=== PATIENT | female | born 1980 | race Caucasian/White ===

== ENCOUNTER 2017-01-26 23:07 | Emergency (ER) | payer BC ==
[2017-01-27 03:07] LABS: CALCIUM 8.2 mg/dL (8.5-10.1); CARBON DIOXIDE 26.7 mmol/L (21-32); CHLORIDE SERUM 103 mmol/L (98-107); CREATININE SERUM 0.7 mg/dL (0.6-1.0); GFR1 > 60 mL/min; GLUCOSE SERUM 108 mg/dL (74-106); POTASSIUM SERUM 3.4 mmol/L (3.5-5.1); SODIUM SERUM 138 mmol/L (136-145)
[2017-01-27 03:11] LABS: ALKALINE PHOSPHATASE 106 U/L (46-116); ALT/SGPT 21 U/L (14-59); AST/SGOT 14 U/L (15-37); LIPASE 106 IU/L (73-393)
[2017-01-27 03:15] LABS: ALBUMIN 3.3 g/dL (3.4-5.0)
[2017-01-27 04:06] VITALS: BP 114/88
== END 2017-01-27 04:06 | disposition home or self-care (01) ==
LOC: ED 23:07
PROVIDERS: Emergency Medicine
DX: R19.7 Diarrhea, unspecified (principal); R10.13 Epigastric pain; R11.2 Nausea with vomiting, unspecified
CPT/HCPCS: J0500; J2405; J7030

== ENCOUNTER 2017-03-30 22:32 | Emergency (ER) | payer BC ==
[2017-03-30 22:53] VITALS: BP 141/90
== END 2017-03-31 01:10 | disposition home or self-care (01) ==
LOC: ED 22:32
DX: S86.912A Strain of unspecified muscle(s) and tendon(s) at lower leg level, left leg, initial encounter (principal); S93.402A Sprain of unspecified ligament of left ankle, initial encounter; W19.XXXA Unspecified fall, initial encounter; Z79.891 Long term (current) use of opiate analgesic; Y93.89 Activity, other specified; Y92.89 Other specified places as the place of occurrence of the external cause; Y99.8 Other external cause status
CPT/HCPCS: 36415; 90715; J1885

== ENCOUNTER 2018-06-02 11:44 | Emergency (ER) | payer MEDICAID ==
[~2018-06-02] VITALS: Ht 152.4 cm; Wt 97.6 kg
[2018-06-02 11:49] VITALS: Ht 152.4 cm; Wt 97.6 kg
[2018-06-02 14:17] VITALS: BP 135/89
== END 2018-06-02 14:17 | disposition home or self-care (01) ==
LOC: ED 11:44
DX: B34.9 Viral infection, unspecified (principal); I10 Essential (primary) hypertension; Z98.890 Other specified postprocedural states
CPT/HCPCS: J1885

== ENCOUNTER 2018-12-26 21:26 | Emergency (ER) | payer MEDICAID ==
[~2018-12-26] VITALS: Ht 152.4 cm; Wt 96.6 kg
[2018-12-26 21:51] VITALS: Ht 152.4 cm; Wt 96.6 kg
[2018-12-26 22:57] VITALS: BP 135/80
== END 2018-12-26 22:57 | disposition home or self-care (01) ==
LOC: ED 21:26
DX: J40 Bronchitis, not specified as acute or chronic (principal); I10 Essential (primary) hypertension; Z86.2 Personal history of diseases of the blood and blood-forming organs and certain disorders involving the immune mechanism; Z98.890 Other specified postprocedural states

== ENCOUNTER 2019-02-13 22:28 | Emergency (ER) | payer MEDICAID ==
[~2019-02-13] VITALS: Ht 152.4 cm; Wt 98.9 kg
[2019-02-13 22:47] VITALS: Ht 152.4 cm; Wt 98.9 kg
[2019-02-14 01:41] VITALS: BP 133/93
== END 2019-02-14 01:41 | disposition home or self-care (01) ==
LOC: ED 22:28
DX: R25.2 Cramp and spasm (principal); I10 Essential (primary) hypertension; Z98.890 Other specified postprocedural states
CPT/HCPCS: J1885; Q0092

== ENCOUNTER 2019-06-04 14:54 | Emergency (ER) | payer MEDICAID ==
[~2019-06-04] VITALS: Ht 160 cm; Wt 91.6 kg
[2019-06-04 15:04] VITALS: Ht 160 cm; Wt 91.6 kg
[2019-06-04 17:38] LABS: BASOPHIL % 1.4 % (0-2)
[2019-06-04 17:41] LABS: PLATELET COUNT 413 x10^3mcL (130-400); RED CELL DISTRIBUTION WIDTH 18.3 % (11.5-14.5)
[2019-06-04 17:43] LABS: CALCIUM 8.5 mg/dL (8.5-10.1); CARBON DIOXIDE 26.6 mmol/L (21-32); CHLORIDE SERUM 107 mmol/L (98-107); CREATININE SERUM 0.8 mg/dL (0.6-1.0); GFR1 > 60 mL/min; GLUCOSE SERUM 92 mg/dL (74-106); POTASSIUM SERUM 3.3 mmol/L (3.5-5.1); SODIUM SERUM 143 mmol/L (136-145)
[2019-06-04 17:47] LABS: ALBUMIN 3.4 g/dL (3.4-5.0); ALKALINE PHOSPHATASE 131 U/L (46-116); ALT/SGPT 23 U/L (14-59); AST/SGOT 16 U/L (15-37); BILIRUBIN TOTAL 0.48 mg/dL (0.20-1.00); TOTAL PROTEIN, SERUM 7.6 g/dL (6.4-8.2)
[2019-06-04 20:12] VITALS: BP 138/89
== END 2019-06-04 20:12 | disposition home or self-care (01) ==
LOC: ED 14:54
PROVIDERS: Emergency Medicine
DX: E87.6 Hypokalemia (principal); I10 Essential (primary) hypertension; Z86.2 Personal history of diseases of the blood and blood-forming organs and certain disorders involving the immune mechanism
CPT/HCPCS: 36415

== ENCOUNTER 2019-06-22 22:04 | Emergency (ER) | payer MEDICAID ==
[~2019-06-22] VITALS: Ht 154.9 cm; Wt 97.5 kg
[2019-06-22 22:40] VITALS: Ht 154.9 cm; Wt 97.5 kg
[2019-06-22 23:28] LABS: BASOPHIL % 0.5 % (0-2)
[2019-06-22 23:29] LABS: PLATELET COUNT 482 x10^3mcL (130-400); RED CELL DISTRIBUTION WIDTH 17.9 % (11.5-14.5)
[2019-06-22 23:37] LABS: CALCIUM 8.1 mg/dL (8.5-10.1); CARBON DIOXIDE 31.2 mmol/L (21-32); CHLORIDE SERUM 105 mmol/L (98-107); CREATININE SERUM 0.8 mg/dL (0.6-1.0); GFR1 > 60 mL/min; GLUCOSE SERUM 94 mg/dL (74-106); POTASSIUM SERUM 3.8 mmol/L (3.5-5.1); SODIUM SERUM 140 mmol/L (136-145)
[2019-06-22 23:42] LABS: ALBUMIN 3.1 g/dL (3.4-5.0); ALKALINE PHOSPHATASE 125 U/L (46-116); ALT/SGPT 25 U/L (14-59); AST/SGOT 14 U/L (15-37); BILIRUBIN TOTAL 0.2 mg/dL (0.20-1.00); LIPASE 193 IU/L (73-393); TOTAL PROTEIN, SERUM 7.4 g/dL (6.4-8.2)
[2019-06-23 06:04] VITALS: BP 117/70
== END 2019-06-23 06:04 | disposition home or self-care (01) ==
LOC: ED 22:04
DX: R51 Headache (principal); R10.11 Right upper quadrant pain; H53.149 Visual discomfort, unspecified; I10 Essential (primary) hypertension; Z98.890 Other specified postprocedural states; Z86.2 Personal history of diseases of the blood and blood-forming organs and certain disorders involving the immune mechanism
CPT/HCPCS: J2270; J2405

== ENCOUNTER 2019-07-03 13:27 | Emergency (ER) | payer MEDICAID ==
[~2019-07-03] VITALS: Ht 154.9 cm; Wt 97.5 kg
[2019-07-03 13:45] VITALS: Ht 154.9 cm; Wt 97.5 kg
[2019-07-03 14:42] LABS: BASOPHIL % 0.7 % (0-2); PLATELET COUNT 357 x10^3mcL (130-400)
[2019-07-03 14:52] LABS: CALCIUM 8.1 mg/dL (8.5-10.1); CARBON DIOXIDE 27.7 mmol/L (21-32); CHLORIDE SERUM 107 mmol/L (98-107); CREATININE SERUM 0.6 mg/dL (0.6-1.0); GFR1 > 60 mL/min; GLUCOSE SERUM 82 mg/dL (74-106); POTASSIUM SERUM 3.8 mmol/L (3.5-5.1); SODIUM SERUM 142 mmol/L (136-145)
[2019-07-03 15:02] LABS: RED CELL DISTRIBUTION WIDTH 17.2 % (11.5-14.5)
[2019-07-03 16:58] VITALS: BP 125/74
== END 2019-07-03 18:09 | disposition home or self-care (01) ==
LOC: ED 13:27
PROVIDERS: Emergency Medicine
DX: R51 Headache (principal); R42 Dizziness and giddiness; I10 Essential (primary) hypertension; Z86.2 Personal history of diseases of the blood and blood-forming organs and certain disorders involving the immune mechanism; Z98.890 Other specified postprocedural states
CPT/HCPCS: J1200; J2765; J7030; J8597

== ENCOUNTER 2019-07-08 20:07 | Emergency (ER) | payer MEDICAID ==
[~2019-07-08] VITALS: Ht 154.9 cm; Wt 96.6 kg
[2019-07-08 20:14] VITALS: Ht 154.9 cm; Wt 96.6 kg
[2019-07-08 20:54] LABS: BASOPHIL % 1.3 % (0-2)
[2019-07-08 20:56] LABS: PLATELET COUNT 425 x10^3mcL (130-400); RED CELL DISTRIBUTION WIDTH 16.8 % (11.5-14.5)
[2019-07-08 21:02] LABS: CALCIUM 8.4 mg/dL (8.5-10.1); CARBON DIOXIDE 28.5 mmol/L (21-32); CHLORIDE SERUM 103 mmol/L (98-107); CREATININE SERUM 0.8 mg/dL (0.6-1.0); GFR1 > 60 mL/min; GLUCOSE SERUM 111 mg/dL (74-106); POTASSIUM SERUM 3.7 mmol/L (3.5-5.1); SODIUM SERUM 140 mmol/L (136-145)
[2019-07-08 21:07] LABS: ALKALINE PHOSPHATASE 141 U/L (46-116); ALT/SGPT 24 U/L (14-59); AST/SGOT 18 U/L (15-37); BILIRUBIN TOTAL 0.2 mg/dL (0.20-1.00); TOTAL PROTEIN, SERUM 7.6 g/dL (6.4-8.2)
[2019-07-08 21:08] LABS: ALBUMIN 3.2 g/dL (3.4-5.0)
[2019-07-08 22:14] VITALS: BP 145/89
[2019-07-08 22:30] LABS: microscopic required? NO
[2019-07-08 22:38] LABS: urine erythrocyte NEGATIVE (NEGATIVE)
[2019-07-08 22:46] LABS: AMPHETAMINE QUAL UR NONE DETECTED (See below)
== END 2019-07-08 22:48 | disposition home or self-care (01) ==
LOC: ED 20:07
PROVIDERS: Emergency Medicine
DX: R42 Dizziness and giddiness (principal); I10 Essential (primary) hypertension; Z98.890 Other specified postprocedural states; Z86.2 Personal history of diseases of the blood and blood-forming organs and certain disorders involving the immune mechanism
CPT/HCPCS: G0480; Q0092

== ENCOUNTER 2020-02-20 05:15 | Emergency (ER) | payer MEDICAID ==
[~2020-02-20] VITALS: Ht 152.4 cm; Wt 90.7 kg
[2020-02-20 05:16] VITALS: Ht 152.4 cm; Wt 90.7 kg
[2020-02-20 06:17] LABS: BASOPHIL % 0.4 % (0-2); CALCIUM 8.8 mg/dL (8.5-10.1); CARBON DIOXIDE 25.5 mmol/L (21-32); CHLORIDE SERUM 107 mmol/L (98-107); CREATININE SERUM 0.8 mg/dL (0.6-1.0); GFR1 > 60 mL/min; GLUCOSE SERUM 108 mg/dL (74-106); PLATELET COUNT 407 x10^3mcL (130-400); POTASSIUM SERUM 3.6 mmol/L (3.5-5.1); RED CELL DISTRIBUTION WIDTH 16.8 % (11.5-14.5); SODIUM SERUM 142 mmol/L (136-145)
[2020-02-20 06:21] LABS: ALKALINE PHOSPHATASE 110 U/L (46-116); ALT/SGPT 31 U/L (14-59); AST/SGOT 19 U/L (15-37); BILIRUBIN TOTAL 0.2 mg/dL (0.20-1.00); LIPASE 167 IU/L (73-393); TOTAL PROTEIN, SERUM 6.5 g/dL (6.4-8.2)
[2020-02-20 06:23] LABS: ALBUMIN 3.2 g/dL (3.4-5.0)
[2020-02-20 09:22] VITALS: BP 130/77
== END 2020-02-20 09:22 | disposition home or self-care (01) ==
LOC: ED 05:15
PROVIDERS: Emergency Medicine
DX: K80.20 Calculus of gallbladder without cholecystitis without obstruction (principal); I10 Essential (primary) hypertension; Z98.890 Other specified postprocedural states; Z87.19 Personal history of other diseases of the digestive system; Z86.2 Personal history of diseases of the blood and blood-forming organs and certain disorders involving the immune mechanism
CPT/HCPCS: J1885; J2270; J2405; Q0092

== ENCOUNTER 2020-04-13 16:09 | Emergency (ER) | payer MEDICAID, SELFPAY ==
[~2020-04-13] VITALS: Ht 152.4 cm; Wt 93.9 kg
[2020-04-13 17:07] VITALS: BP 111/85; Ht 152.4 cm; Wt 93.9 kg
[2020-04-13 18:02] LABS: BASOPHIL % 0.9 % (0-2); PLATELET COUNT 300 x10^3mcL (130-400)
[2020-04-13 18:04] LABS: RED CELL DISTRIBUTION WIDTH 17.8 % (11.5-14.5)
[2020-04-13 18:11] LABS: CALCIUM 8.1 mg/dL (8.5-10.1); CHLORIDE SERUM 100 mmol/L (98-107); GFR1 > 60 mL/min; GLUCOSE SERUM 110 mg/dL (74-106); POTASSIUM SERUM 3.3 mmol/L (3.5-5.1); SODIUM SERUM 139 mmol/L (136-145)
[2020-04-13 18:16] LABS: ALBUMIN 3.2 g/dL (3.4-5.0); ALKALINE PHOSPHATASE 113 U/L (46-116); ALT/SGPT 34 U/L (14-59); AST/SGOT 44 U/L (15-37); BILIRUBIN TOTAL 0.3 mg/dL (0.20-1.00); TOTAL PROTEIN, SERUM 7.7 g/dL (6.4-8.2)
== END 2020-04-13 19:29 | disposition home or self-care (01) ==
LOC: ED 16:09
PROVIDERS: Emergency Medicine
DX: U07.1 COVID-19 (principal); R10.9 Unspecified abdominal pain; I10 Essential (primary) hypertension; Z98.890 Other specified postprocedural states
CPT/HCPCS: Q0092; Q0162; U0003-CS

== ENCOUNTER 2020-08-06 02:28 | Emergency (ER) | payer MEDICAID ==
[~2020-08-06] VITALS: Ht 152.4 cm; Wt 96.2 kg
[2020-08-06 02:46] VITALS: Ht 152.4 cm; Wt 96.2 kg
[2020-08-06 04:19] LABS: BASOPHIL % 0.7 % (0-2)
[2020-08-06 04:20] LABS: CALCIUM 8.7 mg/dL (8.5-10.1); CARBON DIOXIDE 22.5 mmol/L (21-32); CHLORIDE SERUM 103 mmol/L (98-107); CREATININE SERUM 0.7 mg/dL (0.6-1.0); GFR1 > 60 mL/min; GLUCOSE SERUM 108 mg/dL (74-106); POTASSIUM SERUM 3.6 mmol/L (3.5-5.1); SODIUM SERUM 138 mmol/L (136-145)
[2020-08-06 04:24] LABS: ALBUMIN 3.4 g/dL (3.4-5.0); ALKALINE PHOSPHATASE 117 U/L (46-116); ALT/SGPT 17 U/L (14-59); AMYLASE 48 U/L (25-115); AST/SGOT 11 U/L (15-37); BILIRUBIN TOTAL 0.29 mg/dL (0.20-1.00); LIPASE 124 IU/L (73-393); TOTAL PROTEIN, SERUM 7.7 g/dL (6.4-8.2)
[2020-08-06 04:28] LABS: RED CELL DISTRIBUTION WIDTH 15.7 % (11.5-14.5)
[2020-08-06 04:30] LABS: PLATELET COUNT 663 x10^3mcL (130-400)
[2020-08-06 08:36] VITALS: BP 109/79
== END 2020-08-06 08:36 | disposition home or self-care (01) ==
LOC: ED 02:28
PROVIDERS: Emergency Medicine
DX: K80.20 Calculus of gallbladder without cholecystitis without obstruction (principal); R07.89 Other chest pain; I10 Essential (primary) hypertension; Z98.890 Other specified postprocedural states; Z86.2 Personal history of diseases of the blood and blood-forming organs and certain disorders involving the immune mechanism; Z87.19 Personal history of other diseases of the digestive system
CPT/HCPCS: J1885; J2270; J2405; J7030; Q9967

== ENCOUNTER 2020-08-10 20:25 | Emergency (ER) | payer MEDICAID ==
[~2020-08-10] VITALS: Ht 152.4 cm; Wt 98.0 kg
[2020-08-10 20:35] VITALS: Ht 152.4 cm; Wt 98.0 kg
[2020-08-10 21:16] LABS: CALCIUM 8.6 mg/dL (8.5-10.1); CARBON DIOXIDE 24.5 mmol/L (21-32); CHLORIDE SERUM 103 mmol/L (98-107); CREATININE SERUM 0.7 mg/dL (0.6-1.0); GFR1 > 60 mL/min; GLUCOSE SERUM 107 mg/dL (74-106); POTASSIUM SERUM 3.8 mmol/L (3.5-5.1); SODIUM SERUM 137 mmol/L (136-145)
[2020-08-10 21:20] LABS: ALBUMIN 3.5 g/dL (3.4-5.0); ALKALINE PHOSPHATASE 129 U/L (46-116); ALT/SGPT 22 U/L (14-59); AST/SGOT 12 U/L (15-37); BILIRUBIN TOTAL 0.22 mg/dL (0.20-1.00); LIPASE 192 IU/L (73-393); TOTAL PROTEIN, SERUM 7.8 g/dL (6.4-8.2)
[2020-08-10 21:28] LABS: BASOPHIL % 0.8 % (0-2); PLATELET COUNT 615 x10^3mcL (130-400); RED CELL DISTRIBUTION WIDTH 16.9 % (11.5-14.5)
[2020-08-11 05:38] VITALS: BP 142/90
== END 2020-08-11 05:38 | disposition short-term general hospital (02) ==
LOC: ED 20:25
PROVIDERS: Student in an Organized Health Care Education/Training Program
DX: K80.20 Calculus of gallbladder without cholecystitis without obstruction (principal); I10 Essential (primary) hypertension; Z98.890 Other specified postprocedural states; Z87.19 Personal history of other diseases of the digestive system; Z86.2 Personal history of diseases of the blood and blood-forming organs and certain disorders involving the immune mechanism
CPT/HCPCS: J2270; J2405

== ENCOUNTER 2020-08-19 23:50 | Emergency (ER) | payer MEDICAID ==
[~2020-08-19] VITALS: Ht 154.9 cm; Wt 93.4 kg
[2020-08-19 23:58] VITALS: Ht 154.9 cm; Wt 93.4 kg
[2020-08-20 01:15] LABS: BASOPHIL % 0.7 % (0-2)
[2020-08-20 01:17] LABS: PLATELET COUNT 491 x10^3mcL (130-400); RED CELL DISTRIBUTION WIDTH 16.8 % (11.5-14.5)
[2020-08-20 01:20] LABS: CALCIUM 8.2 mg/dL (8.5-10.1); CHLORIDE SERUM 104 mmol/L (98-107); CREATININE SERUM 0.6 mg/dL (0.6-1.0); GFR1 > 60 mL/min; GLUCOSE SERUM 99 mg/dL (74-106); POTASSIUM SERUM 3.2 mmol/L (3.5-5.1); SODIUM SERUM 139 mmol/L (136-145)
[2020-08-20 01:24] LABS: ALKALINE PHOSPHATASE 99 U/L (46-116); ALT/SGPT 31 U/L (14-59); AST/SGOT 15 U/L (15-37); BILIRUBIN TOTAL 0.28 mg/dL (0.20-1.00); LIPASE 69 IU/L (73-393)
[2020-08-20 01:25] LABS: ALBUMIN 2.9 g/dL (3.4-5.0)
[2020-08-20 02:10] VITALS: BP 109/79
== END 2020-08-20 02:10 | disposition home or self-care (01) ==
LOC: ED 23:50
PROVIDERS: Emergency Medicine
DX: R10.816 Epigastric abdominal tenderness (principal); I10 Essential (primary) hypertension; Z90.49 Acquired absence of other specified parts of digestive tract; Z98.890 Other specified postprocedural states; Z86.2 Personal history of diseases of the blood and blood-forming organs and certain disorders involving the immune mechanism
CPT/HCPCS: J2270; J2405; J7030